=== PATIENT | male | born 1930 | race Caucasian/White ===

== ENCOUNTER 2018-03-31 07:31 | Day surgery (SDC) | payer OTHER ==
[2018-03-19 13:09] VITALS: BMI 27.4
[2018-03-31] MEDS ORDERED: Iohexol 240 200 ML ONE (11:43)
[2018-03-31] MEDS: cefTRIAXone 1 gm 1 GM/100 ML BAG IVPB ONE ×2 (12:10→12:18)
[2018-03-31] MEDS ORDERED: Propofol 10 mg/ml Inj (20 ML) ONE (12:13)
[2018-03-31] MEDS ORDERED: Lactated Ringer's 1,000 ML IV SCH (12:45)
--- NOTE | 2018-03-31 12:50 | PCM.SURG1 ---
Surgeon's Initial Post Op Note - Surgeon's Notes Surgeon: Raymond Angel Photographic Process Worker: none Type of Anesthesia: General Mask Pre-Operative Diagnosis: Urinary retention Operative Findings: BPH. Bladder calculi. L vu-reflux, grade 1 Post-Operative Diagnosis: same Operation Performed: cysto, cmg, cgm, removal of bladder calculi Specimen/Specimens Removed: bladder stone Estimated Blood Loss: EBL {In ML}: 0 Blood Products Given: N/A Post-Op Condition: Good Date of Surgery/Procedure: 03/31/18 Time of Surgery/Procedure: 12:50
[2018-03-31 14:01] VITALS: RESP 15; TEMP 97.6
[2018-03-31 14:24] VITALS: BP 149/55; PULSE 59; O2SAT 99
--- NOTE | 2018-04-01 17:01 | RAD ---
Date of service: 03/31/2018 PROCEDURE: HISTORY: URINARY RETENTION COMPARISON: None TECHNIQUE: Seven images FINDINGS: Image labeled metal reclamation kettle tender shows nonspecific bowel gas pattern. And pelvic vascular calcifications. Moderate stool retention present and lumbar spondylosis. Series 2, image 9 shows a moderately distended bladder with some trabecular markings to its contour no gross filling defects seen. No gross reflux appreciated. Postvoid film shows no residual contrast within the bladder or contrast refluxing up into the cephalad collecting systems. IMPRESSION: No filling defects. No reflux appreciated No postvoid residual urine volume.
--- NOTE | 2018-04-01 19:02 | OP ---
Copied To: Mara Angel MD Attending MD: Mara Angel MD PROCEDURE DATE: 03/31/2018 PREOPERATIVE DIAGNOSIS: Urinary retention. POSTOPERATIVE DIAGNOSES: Urinary retention. Prostatic enlargement. Cystitis. Left vesicoureteral reflux. PROCEDURES: Cystogram. Cystometrogram. Cystoscopy. OPERATING SURGEON: Mara Angel MD DESCRIPTION OF PROCEDURE: As follows: The patient was in supine position. Papier Mache' Molder film of the abdomen was obtained. Iodinated contrast dye was instilled via the Burns catheter. Radiographs were obtained in PA and oblique views. Cystogram demonstrated a normal bladder contour. There was elevation of the bladder base consistent with prostatic hypertrophy. There was grade 1 left vesicoureteral reflux. There was no filling defects within the bladder. There was elevation of the bladder base consistent with prostatic hypertrophy. There was no bladder diverticulum. Subsequent post drainage film confirmed the above findings. The cystometrogram was performed using water manometry. The filling of the bladder was performed. The patient felt first urge to void at a volume of the 100 mL. There was no brisk detrusor contraction noted on the water manometry. The patient continued to feel the urge to void. The bladder was filled up to a volume of 350 mL. The patient was then placed in lithotomy position. Genitalia prepped and draped sterilely. The patient had received perioperative antibiotics. The genitalia prepped and draped sterilely. A 22-Martiniquais cystoscope sheath was introduced under direct vision. Urethra, prostate and bladder were inspected with 30-degree and 70 degree lenses. FINDINGS: There was no stricture in the anterior urethra. There was evidence of trilobar prostatic hypertrophy. Prostatic urethra was 4 cm in length. There was lateral lobe hypertrophy, which was occlusive. In addition, there was middle lobe hypertrophy, which was occlusive and which was intruding into the bladder. There was moderate bladder trabeculation. There was a small cellule. There was no bladder stone. There was no bladder tumor. The ureteral orifices were normal in position and shape. There was moderate cystitis noted. The bladder was inspected with 70- degree lens and confirmed the above findings. Bladder was then drained. Cystoscope and sheath removed. Burns catheter was inserted. Bladder drainage was clear. Exam under anesthesia/bimanual examination was performed. There was no abnormal pelvic mass, fixation, or induration. Prostate was supple and smooth without fixation, induration, or nodularity. Prostate was approximately 30-40 g in size. The patient tolerated the procedure without complications. Mara Angel MD
== END 2018-03-31 14:39 | disposition home or self-care (01) ==
LOC: C.SDS 07:31
PROVIDERS: ATTEND Urology
DX: N40.1 Benign prostatic hyperplasia with lower urinary tract symptoms (principal); R33.9 Retention of urine, unspecified; N13.70 Vesicoureteral-reflux, unspecified; N30.90 Cystitis, unspecified without hematuria
CPT/HCPCS: 51728; 51797; 74430; 82948; 88300; J0696

== ENCOUNTER 2018-04-18 07:44 | Emergency (ER) | payer OTHER ==
[2018-04-18 07:44] VITALS: BMI 27.4
[2018-04-18 07:54] VITALS: PULSE 63
--- NOTE | 2018-04-18 08:09 | C.PDOC ---
History Of Present Illness 87 y/o male, with PMHx of HTN, and diabetes, is brought to ED via BLS for evaluation of inability to urinate and abdominal pain for the past 2 days. As per pt, hays catheter was removed [address] Raymond Angel. Pt reports having back surgery at the beginning of the month with improved mobility. No back pain, saddle anesthesia, enuresis or encoparesis. Otherwise, denies n/v/d, constipation, flank pain, or fever. Time Seen by Provider: 04/18/18 08:05 Chief Complaint (Nursing): Male Genitourinary History Per: Patient History/Exam Limitations: no limitations Past Medical History Reviewed: Historical Data, Nursing Documentation, Vital Signs Vital Signs: Last Vital Signs Temp 98 F 04/18/18 09:09 Pulse 63 04/18/18 09:09 Resp 18 04/18/18 09:09 BP 150/63 04/18/18 09:09 Pulse Ox 96 04/18/18 09:30 - Medical History PMH: Arthritis, Benign Prostatic Hyperplasia, CAD (angioplasty), Diabetes, HTN Denies: Chronic Kidney Disease Surgical History: Back Surgery - [facility] Procedures FUSION 2-4 L JT W NONAUT SUB, POST APPR P COL, OPEN (01/28/18) OTHER SKIN & SUBQ I D (04/13/15) Family History: States: Unknown Family Hx - Social History Hx Alcohol Use: No Hx Substance Use: No - Immunization History Hx Tetanus Toxoid Vaccination: Yes Hx Influenza Vaccination: Yes Hx Pneumococcal Vaccination: Yes Review Of Systems Except As Marked, All Systems Reviewed And Found Negative. Constitutional: Negative for: Fever, Chills Cardiovascular: Negative for: Chest Pain, Palpitations Respiratory: Negative for: Cough, Shortness of Breath Gastrointestinal: Negative for: Nausea, Vomiting, Abdominal Pain, Diarrhea, Constipation Genitourinary: Positive for: Other (inability to urinate) Musculoskeletal: Negative for: Back Pain Physical Exam - Physical Exam Appears: Non-toxic, No Acute Distress Skin: Normal Color, Warm, Dry Head: Atraumatic, Normacephalic Eye(s): bilateral: Normal Inspection Oral Mucosa: Moist Neck: Normal ROM, Supple Chest: Symmetrical Cardiovascular: Rhythm Regular, No Murmur Respiratory: Normal Breath Sounds, No Rales, No Rhonchi, No Wheezing Gastrointestinal/Abdominal: Soft, No Tenderness, No Mass, No Distention, No Guarding, No Rebound Back: No CVA Tenderness, No Vertebral Tenderness, No Paraspinal Tenderness, Other (15cm surgical scar to lumbar spine, well healing, no erythema or crepitus.) Extremity: Normal ROM, No Deformity Neurological/Psych: Oriented x3, Normal Speech, Other (no saddle anesthesia. pt has steady gait) ED Course And Treatment O2 Sat by Pulse Oximetry: 96 (RA) Pulse Ox Interpretation: Normal Medical Decision Making Medical Decision Makin yr old male w/ hx of Back surgery p/w urinary retention x2d after hays removal. Was seen by Dr. Angel 2d prior and had hays removed. Pt notes suprapubic abdominal pain, throbbing, exactly alike previous retention. No flank pain- u/l dissection, No throbbing abd mass on my exam. No rectal pain or deep fullness- u/l prostatitis. No RLQ or LLQ pain, and no diarrhea- u/l diverticulitis or appdx. Plan: Urinalysis Urine culture 814: appreciate consult w/ Dr. Raymond Angel: hays to be placed and to follow up outpt 829: hays placed by RN, w/ clear anh drainage, pt notes immediate relief of pressure suprapubically Pending UA 0930 UA Resulted: UTI; 03/19 UA sensitive to cipro Will rx w/ cipro for UTI. UC ordered. Pending Hays to leg bag, continues draining anh urine w/ out clots to followup w/ Dr. Angel Disposition - Disposition Disposition Time: 09:28 Condition: GOOD Forms: [facility] ([place]ian) - Clinical Impression Clinical Impression: UTI (urinary tract infection), Urinary retention - Scribe Statement The provider has reviewed the documentation as recorded by the Scribe KP All medical record entries made by the Scribe were at my direction and personally dictated by me. I have reviewed the chart and agree that the record accurately reflects my personal performance of the history, physical exam, medical decision making, and the department course for this patient. I have also personally directed, reviewed, and agree with the discharge instructions and disposition.
[2018-04-18 09:07] LABS: URINE BACTERIA OCC (<OCC); URINE BILIRUBIN NEGATIVE (NEGATIVE); URINE BLOOD 3+ (NEGATIVE); URINE CLARITY Turbid (Clear); URINE COLOR Yellow (YELLOW); URINE GLUCOSE (UA) 1+ mg/dL (Normal); URINE LEUKOCYTE ESTERASE 3+ Leu/uL (Negative); URINE PROTEIN 2+ mg/dL (NEGATIVE); URINE UROBILINOGEN NORMAL mg/dL (0.2-1.0); WBC CLUMPS OCC /hpf
[2018-04-18 09:09] VITALS: BP 150/63; RESP 18; TEMP 98
[2018-04-18 09:29] VITALS: O2SAT 96
== END 2018-04-18 10:27 | disposition home or self-care (01) ==
LOC: C.ER 07:44
DX: R33.9 Retention of urine, unspecified (principal); N39.0 Urinary tract infection, site not specified

== ENCOUNTER 2018-05-09 09:23 | Inpatient (IN) | payer OTHER ==
[2018-05-05 10:33] VITALS: BMI 25.8
[2018-05-09] MEDS ORDERED: cefTRIAXone 1 gm 1 GM/100 ML BAG IVPB ONE (11:00)
[2018-05-09] MEDS ORDERED: Lidocaine 2% Jelly (Uro-Jet) ONE (11:00)
[2018-05-09] MEDS ORDERED: Propofol 10 mg/ml Inj (20 ML) ONE (11:04)
[2018-05-09] MEDS ORDERED: ePHEDrine 50 mg/ml Inj ONE (11:21)
[2018-05-09] MEDS ORDERED: HYDROmorphone 0.5 mg/0.5 ml ISec IVP PRN (12:13)
--- NOTE | 2018-05-09 13:38 | PCM.SURG1 ---
Surgeon's Initial Post Op Note - Surgeon's Notes Surgeon: Raymond Angel Agricultural Service Worker: none Type of Anesthesia: General LMA Pre-Operative Diagnosis: BPH, retention Operative Findings: same Post-Operative Diagnosis: same Operation Performed: TURP Specimen/Specimens Removed: prostate Estimated Blood Loss: EBL {In ML}: 100 Blood Products Given: N/A Post-Op Condition: Good Date of Surgery/Procedure: 05/09/18 Time of Surgery/Procedure: 12:40
--- NOTE | 2018-05-09 13:46 | CP.PCM.HP ---
<Sam Shane - Last Filed: 05/09/18 14:34> History of Present Illness - History of Present Illness History of Present Illness: H&P For Medicine Service This is an 88 yr old male patient of Dr. Angel'colleen who presented to [facility] for TURP. He underwent TURP this morning, completed by Dr. Angel and is being admitted for observation s/p surgery with bladder irrigation. The surgery was completed to address BPH and urinary retention. Pathology samples have been submitted. The patient was seen and examined in the PACU. He remains groggy from surgical sedation. He denies any acute complaints, states that his pain is well controlled. PMD: Dr. Braga PMHx: HTN, DMII, CAD s/p angioplasty >15 yrs ago, chronic low back pain, BPH SurgHx: angioplasty 15 yrs ago, TURP (current admission), "Back surgery" (unsure of surgical intervention) Medications: Flexeril 5mg PO QHS PRN, Lexapro 5mg PO QD, Proscar 5mg PO QD, gabapentin 100mg PO QD, Glipizide SR 5mg PO QD, Duexis 800-26.6mg PO BID, Levemir 5u SC QHS, Losartan 50mg PO QD, Metformin 500mg PO QD, Metorprolol Succ 50mg PO QD, Januvia 100mg PO QD, Allergies: NKDA FMHx: sister with CAD s/p CABG SocHx: denies tobacco, EtOH and drugs Present on Admission - Present on Admission Any Indicators Present on Admission: No Review of Systems - Constitutional Constitutional: absent: Chills, Fever - EENT Eyes: absent: Blurred Vision, Change in Vision - Cardiovascular Cardiovascular: absent: Chest Pain, Dyspnea - Respiratory Respiratory: absent: Cough, Dyspnea - Gastrointestinal Gastrointestinal: absent: Abdominal Pain, Constipation, Diarrhea, Nausea, Vomiting - Genitourinary Genitourinary: As Per HPI - Neurological Neurological: absent: Dizziness, Numbness, Syncope, Tingling, Vertigo Past Patient History - Infectious Disease Hx of Infectious Diseases: None - Past Medical History & Family History Past Medical History?: Yes - Past Social History Smoking Status: Never Smoked - CARDIAC Hx Cardiac Disorders: Yes Hx Hypertension: Yes - PULMONARY Hx Respiratory Disorders: No - NEUROLOGICAL Hx Neurological Disorder: No - HEENT Hx HEENT Problems: No - RENAL Hx Chronic Kidney Disease: No - ENDOCRINE/METABOLIC Hx Endocrine Disorders: Yes Hx Diabetes Mellitus Type 2: Yes - HEMATOLOGICAL/ONCOLOGICAL Hx Blood Disorders: No - INTEGUMENTARY Hx Dermatological Problems: No - MUSCULOSKELETAL/RHEUMATOLOGICAL Hx Musculoskeletal Disorders: Yes Hx Arthritis: Yes Hx Back Pain: Yes Hx Falls: Yes Other/Comment: HX: LUMBAR SPONDYLOSIS AND INSTABILITY - GASTROINTESTINAL Hx Gastrointestinal Disorders: No - GENITOURINARY/GYNECOLOGICAL Hx Genitourinary Disorders: Yes Hx Prostate Problems: Yes Other/Comment: URINARY RETENTION S/P SURGERY W/ MEYERS CATHETER X 1 MONTH - PSYCHIATRIC Hx Psychophysiologic Disorder: No Hx Substance Use: No - SURGICAL HISTORY Hx Surgeries: Yes Hx Angioplasty: Yes (2002) Hx Orthopedic Surgery: Yes (LUMBAR LAMINECTOMY L3-4/L4-5) Other/Comment: CYSTOSCOPY - ANESTHESIA Hx Anesthesia: Yes Hx Anesthesia Reactions: No Hx Malignant Hyperthermia: No Has any member of the family had a problem w/ anesthesia?: ([place]) Meds Allergies/Adverse Reactions: Allergies Allergy/AdvReac Type Severity Reaction Status Date / Time No Known Allergies Allergy Verified 04/18/18 07:52 Physical Exam - Head Exam Head Exam: ATRAUMATIC, NORMOCEPHALIC - Eye Exam Eye Exam: Normal appearance - ENT Exam ENT Exam: Mucous Membranes Dry - Respiratory Exam Respiratory Exam: Clear to Auscultation Bilateral, NORMAL BREATHING PATTERN - Cardiovascular Exam Cardiovascular Exam: REGULAR RHYTHM, +S1, +S2 - GI/Abdominal Exam GI & Abdominal Exam: Soft. absent: Guarding, Tenderness - Extremities Exam Extremities exam: Negative for: calf tenderness, pedal edema - Neurological Exam Neurological exam: Alert, Oriented x3 - Psychiatric Exam Psychiatric exam: Normal Affect, Normal Mood - Skin Skin Exam: Dry, Warm Results - Vital Signs Recent Vital Signs: Last Vital Signs Temp 97.6 F 05/09/18 12:12 Pulse 74 05/09/18 13:15 Resp 11 L 05/09/18 13:15 BP 165/89 H 05/09/18 13:15 Pulse Ox 99 05/09/18 13:15 - Labs Labs: Laboratory Results - last 24 hr 05/09/18 10:08 POC Glucose (mg/dL) 146 H Assessment & Plan - Assessment and Plan (Free Text) Plan: BPH s/p TURP TURP completed 05/09/18- Dr. Angel Bladder irrigation Follow up urology recs Admission to Med/Surg for observation Follow up labs Continue home meds: Flomax 0.4mg PO BID, Proscar 5mg PO BID Diabetes Mellitus Follow up A1C, lipid panel Fingersticks ACHS Low dose ISS Diabetic Diet Hypoglycemia Protocol CAD s/p angioplasty Continue with home meds: Losartan 50mg PO QD, Metoprolol Succ 50mg PO QD Follow up chest xray heart healthy diet Anxiety/Depression Continue home meds: Lexapro 5mg PO daily Chronic Lower Back Pain Flexeril 5mg PO QHS PRN Tylenol 650mg PO Q6HRS PRN Gabapentin 100mg PO QD Additional pain control PRN PPX SCD's A/C contraindicated in setting of recent surgery Pepcid 20mg PO BID Case discussed with Dr. Ayala <Gopi Ayala - Last Filed: 05/09/18 16:18> Results - Vital Signs Recent Vital Signs: Last Vital Signs Temp 97.4 F L 05/09/18 14:30 Pulse 74 05/09/18 14:30 Resp 10 L 05/09/18 14:30 BP 161/79 H 05/09/18 14:30 Pulse Ox 99 05/09/18 14:30 - Labs Labs: Laboratory Results - last 24 hr 05/09/18 10:08 POC Glucose (mg/dL) 146 H Attending/Attestation - Attestation I have personally seen and examined this patient.: Yes I have fully participated in the care of the patient.: Yes I have reviewed all pertinent clinical information: Yes Notes (Text): 05/09/18 16:14 Medical attending: Patient was seen and examined by me. Agree with the above note by the resident The patient was in the PACU when I came and saw him. He was not in any acute distress. He is admitted for observation s/p TURP surgery with bladder irrigation. He was sleepy however able to answer all questions appripirately Given his age as well history of CAD, we will get a CXRAY just to see if he could potentially be fluid overload. Also resume most of the medications as well. Hold off on giving heparin/lovenox for the time being. thank you Gopi Ayala
[2018-05-09] MEDS ORDERED: Glucagon Recombinant 1 mg Inj IM PRN (14:41)
[2018-05-09] MEDS ORDERED: Dextrose 50% SYRINGE Inj (50 ml) IV PRN (14:41)
[2018-05-09] MEDS: (Novolog) Insulin Aspart, Recombinant 100 u/ml 10 ml vial SC SCH ×2 (17:10→22:03)
--- NOTE | 2018-05-09 17:46 | RAD ---
Date of service: 05/09/2018 PROCEDURE: CHEST RADIOGRAPH, 1 VIEW HISTORY: hx of heart disease COMPARISON: Comparison made with CT chest [id number]. FINDINGS: LUNGS: Poor inspiration with low lung volumes, crowded bronchovascular markings and mild bibasilar atelectasis. There is a curvilinear density left mid lung field that could represent atelectasis and/or scar. PLEURA: No pneumothorax or pleural fluid seen. CARDIOVASCULAR: Heart size upper limits of normal. OSSEOUS STRUCTURES: No significant abnormalities. VISUALIZED UPPER ABDOMEN: Normal. OTHER FINDINGS: None. IMPRESSION: Poor inspiration with low lung volumes, crowded bronchovascular markings and mild bibasilar atelectasis. There is a curvilinear density left mid lung field that could represent atelectasis and/or scar.
[2018-05-09 17:55] LABS: BASO % 0.5 % (0.0-2.0); EOS # 0.3 K/uL (0.0-0.7); EOS % 3.6 % (0.0-4.0); HEMOGLOBIN 13.6 g/dL (12.0-18.0); LYMPH # 2.4 K/uL (1.0-4.3); LYMPH % 30.9 % (20.0-40.0); MEAN CELL VOLUME 94.1 fL (80.0-94.0); MEAN CORPUSCULAR HEMOGLOBIN 31.4 pg (27.0-31.0); MEAN CORPUSCULAR HGB CONC 33.4 g/dL (33.0-37.0); MEAN PLATELET VOLUME 7.9 fL (7.2-11.7); MONO # 0.8 K/uL (0.0-0.8); MONO % 10.2 % (0.0-10.0); NEUT # 4.3 K/uL (1.8-7.0); NEUT % 54.8 % (50.0-75.0); NRBC % 0.1 % (0.0-2.0); RBC 4.33 Mil/uL (4.40-5.90); RED CELL DISTRIBUTION WIDTH 13.5 % (11.5-14.5); WHITE BLOOD COUNT 7.9 K/uL (4.8-10.8)
[2018-05-09 18:12] LABS: ALB/GLOB RATIO 1.4 (1.0-2.1); ALBUMIN 4.3 g/dL (3.5-5.0); ALT/SGPT 35 U/L (21-72); AST/SGOT 25 U/L (17-59); BLOOD UREA NITROGEN 21 mg/dL (9-20); CALCIUM 9.6 mg/dl (8.6-10.4); GFR NON-AFRICAN AMERICAN > 60
[2018-05-10 06:59] LABS: HEMOGLOBIN 13.2 g/dL (12.0-18.0); MEAN CELL VOLUME 92.6 fL (80.0-94.0); MEAN CORPUSCULAR HEMOGLOBIN 31.6 pg (27.0-31.0); MEAN CORPUSCULAR HGB CONC 34.1 g/dL (33.0-37.0); MEAN PLATELET VOLUME 8.1 fL (7.2-11.7); RBC 4.17 Mil/uL (4.40-5.90); RED CELL DISTRIBUTION WIDTH 13.4 % (11.5-14.5); WHITE BLOOD COUNT 7.6 K/uL (4.8-10.8)
[2018-05-10 07:26] LABS: ALB/GLOB RATIO 1.2 (1.0-2.1); ALBUMIN 3.9 g/dL (3.5-5.0); ALT/SGPT 28 U/L (21-72); AST/SGOT 24 U/L (17-59); BLOOD UREA NITROGEN 17 mg/dL (9-20); CALCIUM 9.7 mg/dl (8.6-10.4); GFR NON-AFRICAN AMERICAN > 60; HDL CHOLESTEROL 42 mg/dL (30-70)
[2018-05-10 07:38] LABS: LDL CHOLESTEROL 61 mg/dL (0-129)
[2018-05-10] MEDS: (Novolog) Insulin Aspart, Recombinant 100 u/ml 10 ml vial SC SCH ×4 (08:35→22:43)
[2018-05-10] MEDS: Metoprolol Succinate 50 mg XL Tab PO SCH (10:11)
--- NOTE | 2018-05-10 12:46 | CP.PCM.PN ---
<Greg Agrawal - Last Filed: 05/10/18 21:10> Subjective - Date & Time of Evaluation Date of Evaluation: 05/10/18 Time of Evaluation: 08:30 - Subjective Subjective: Patient is seen and examined at bedside. Patient feeling much better today. Patient has some discomfort on tip of penis where the hays catheter is inserted. Patient denies burning, or redness in the tip of penis. Patient denies fevers, chills, chest pain, shortness of breath, nausea or vomiting. CBI was discontinued recently as per Dr Jeanne chacko. urine output from hays is 550 overnight. Objective - Vital Signs/Intake and Output Vital Signs (last 24 hours): Temp Pulse Resp BP Pulse Ox 98.3 F 64 20 146/77 60 L 05/10/18 08:00 05/10/18 08:00 05/10/18 08:00 05/10/18 08:00 05/10/18 08:00 Intake and Output: 05/10/18 05/10/18 06:59 18:59 Intake Total 21420 240 Output Total 04507 550 Balance 150 -310 - Medications Medications: Current Medications Acetaminophen (Tylenol 325mg Tab) 650 mg PO Q6 PRN PRN Reason: Pain, Mild (1-3) Acetaminophen (Tylenol 325mg Tab) 650 mg PO Q6 PRN PRN Reason: Fever >100.4 F Cyclobenzaprine HCl (Flexeril) 5 mg PO HS PRN PRN Reason: Muscle spasm Dextrose (Dextrose 50% Inj) 0 ml IV STAT PRN; Protocol PRN Reason: Hypoglycemia Protocol Dextrose (Glutose 15) 0 gm PO ONCE PRN; Protocol PRN Reason: Hypoglycemia Protocol Docusate Sodium (Colace) 100 mg PO TID [facility] Last Admin: 05/10/18 10:11 Dose: 100 mg Escitalopram Oxalate (Lexapro) 5 mg PO DAILY [facility] Last Admin: 05/10/18 10:12 Dose: 5 mg Famotidine (Pepcid) 20 mg PO DAILY [facility] Last Admin: 05/10/18 10:11 Dose: 20 mg Finasteride (Proscar) 5 mg PO DAILY [facility] Last Admin: 05/10/18 10:12 Dose: 5 mg Gabapentin (Neurontin) 100 mg PO DAILY [facility] Last Admin: 05/10/18 10:11 Dose: 100 mg Glucagon (Glucagen Diagnostic Kit) 0 mg IM STAT PRN; Protocol PRN Reason: Hypoglycemia Protocol Hydromorphone HCl (Dilaudid) 0.5 mg IVP Q10M PRN PRN Reason: Pain, moderate (4-7) Last Admin: 05/09/18 13:22 Dose: 0.5 mg Dextrose (Dextrose 5% In Water 1000 Ml) 1,000 mls @ 0 mls/hr IV .Q0M PRN; Protocol PRN Reason: Hypoglycemia Protocol Ceftriaxone Sodium 1 gm/ (Sodium Chloride) 100 mls @ 100 mls/hr IVPB DAILY [facility]; Protocol Last Admin: 05/10/18 11:12 Dose: 100 mls/hr Influenza Virus Vaccine (Fluzone Quad [id number]) 60 mcg IM .ONCE ONE Stop: 05/11/18 10:01 Insulin Aspart (Novolog) 0 unit SC ACHS [facility]; Protocol Last Admin: 05/10/18 12:13 Dose: 2 units Losartan Potassium (Cozaar) 50 mg PO DAILY [facility] Last Admin: 05/10/18 10:11 Dose: 50 mg Metoprolol Succinate (Toprol Xl) 50 mg PO DAILY [facility] Last Admin: 05/10/18 10:11 Dose: 50 mg Oxycodone/Acetaminophen (Percocet 5/325 Mg Tab) 1 tab PO Q4H PRN PRN Reason: Pain, moderate (4-7) Stop: 05/12/18 17:00 Pneumococcal Polyvalent Vaccine (Pneumovax 23 Vaccine) 0.5 ml IM .ONCE ONE Stop: 05/11/18 10:01 Tamsulosin HCl (Flomax) 0.4 mg PO Q12 [facility] Last Admin: 05/10/18 10:11 Dose: 0.4 mg - Labs Labs: 05/10/18 06:41 05/10/18 06:41 - Constitutional Appears: Well, Non-toxic, No Acute Distress - Head Exam Head Exam: ATRAUMATIC, NORMAL INSPECTION, NORMOCEPHALIC - Eye Exam Eye Exam: EOMI, Normal appearance - ENT Exam ENT Exam: Mucous Membranes Moist, Normal Exam - Neck Exam Neck Exam: Full ROM - Respiratory Exam Respiratory Exam: Clear to Ausculation Bilateral, NORMAL BREATHING PATTERN. absent: Rales, Rhonchi, Wheezes - Cardiovascular Exam Cardiovascular Exam: REGULAR RHYTHM, +S1, +S2 - GI/Abdominal Exam GI & Abdominal Exam: Soft, Normal Bowel Sounds. absent: Distended, Tenderness - Exam Additional comments: Hays catheter in place, functioning - Extremities Exam Extremities Exam: Full ROM, Normal Inspection - Back Exam Back Exam: Full ROM, NORMAL INSPECTION - Neurological Exam Neurological Exam: Alert, Awake, Normal Gait, Oriented x3 - Psychiatric Exam Psychiatric exam: Normal Affect, Normal Mood - Skin Skin Exam: Dry, Intact, Normal Color, Warm Assessment and Plan - Assessment and Plan (Free Text) Plan: BPH s/p TURP TURP completed 05/09/18- Dr. Angel CBI discontinued - continue irrigate hays Follow up urology recs Follow up labs Continue home meds: Flomax 0.4mg PO BID, Proscar 5mg PO BID Diabetes Mellitus Follow up A1C, lipid panel (triglycerides 287) Fingersticks ACHS Low dose ISS Diabetic Diet Hypoglycemia Protocol CAD s/p angioplasty Continue with home meds: Losartan 50mg PO QD, Metoprolol Succ 50mg PO QD Follow up chest xray - crowded bronchovascular markings and mild bibasilar atelectasis. curvilinear density left mid lung that could represent atelectasis and/or scar. heart healthy diet Anxiety/Depression Continue home meds: Lexapro 5mg PO daily Chronic Lower Back Pain Flexeril 5mg PO QHS PRN Tylenol 650mg PO Q6HRS PRN Gabapentin 100mg PO QD Additional pain control PRN PPX SCD's A/C contraindicated in setting of recent surgery Pepcid 20mg PO BID discussed with Dr Lucy Agrawal, PGY-1 <Gopi Ayala H - Last Filed: 05/11/18 07:55> Objective - Vital Signs/Intake and Output Vital Signs (last 24 hours): Temp Pulse Resp BP Pulse Ox 98.2 F 57 L 20 133/61 95 05/11/18 00:00 05/11/18 00:00 05/11/18 00:00 05/11/18 00:00 05/11/18 00:00 Intake and Output: 05/11/18 05/11/18 06:59 18:59 Intake Total 700 Output Total 900 Balance -200 - Medications Medications: Current Medications Acetaminophen (Tylenol 325mg Tab) 650 mg PO Q6 PRN PRN Reason: Pain, Mild (1-3) Acetaminophen (Tylenol 325mg Tab) 650 mg PO Q6 PRN PRN Reason: Fever >100.4 F Cyclobenzaprine HCl (Flexeril) 5 mg PO HS PRN PRN Reason: Muscle spasm Dextrose (Dextrose 50% Inj) 0 ml IV STAT PRN; Protocol PRN Reason: Hypoglycemia Protocol Dextrose (Glutose 15) 0 gm PO ONCE PRN; Protocol PRN Reason: Hypoglycemia Protocol Docusate Sodium (Colace) 100 mg PO TID [facility] Last Admin: 05/10/18 17:41 Dose: Not Given Escitalopram Oxalate (Lexapro) 5 mg PO DAILY [facility] Last Admin: 05/10/18 10:12 Dose: 5 mg Famotidine (Pepcid) 20 mg PO DAILY [facility] Last Admin: 05/10/18 10:11 Dose: 20 mg Finasteride (Proscar) 5 mg PO DAILY [facility] Last Admin: 05/10/18 10:12 Dose: 5 mg Gabapentin (Neurontin) 100 mg PO DAILY [facility] Last Admin: 05/10/18 10:11 Dose: 100 mg Glucagon (Glucagen Diagnostic Kit) 0 mg IM STAT PRN; Protocol PRN Reason: Hypoglycemia Protocol Hydromorphone HCl (Dilaudid) 0.5 mg IVP Q10M PRN PRN Reason: Pain, moderate (4-7) Last Admin: 05/09/18 13:22 Dose: 0.5 mg Dextrose (Dextrose 5% In Water 1000 Ml) 1,000 mls @ 0 mls/hr IV .Q0M PRN; Protocol PRN Reason: Hypoglycemia Protocol Ceftriaxone Sodium 1 gm/ (Sodium Chloride) 100 mls @ 100 mls/hr IVPB DAILY [facility]; Protocol Last Admin: 05/10/18 11:12 Dose: 100 mls/hr Influenza Virus Vaccine (Fluzone Quad [id number]) 60 mcg IM .ONCE ONE Stop: 05/11/18 10:01 Insulin Aspart (Novolog) 0 unit SC ACHS [facility]; Protocol Last Admin: 05/10/18 22:43 Dose: Not Given Losartan Potassium (Cozaar) 50 mg PO DAILY [facility] Last Admin: 05/10/18 10:11 Dose: 50 mg Metoprolol Succinate (Toprol Xl) 50 mg PO DAILY [facility] Last Admin: 05/10/18 10:11 Dose: 50 mg Oxycodone/Acetaminophen (Percocet 5/325 Mg Tab) 1 tab PO Q4H PRN PRN Reason: Pain, moderate (4-7) Stop: 05/12/18 17:00 Last Admin: 05/11/18 06:33 Dose: 1 tab Pneumococcal Polyvalent Vaccine (Pneumovax 23 Vaccine) 0.5 ml IM .ONCE ONE Stop: 05/11/18 10:01 Tamsulosin HCl (Flomax) 0.4 mg PO Q12 [facility] Last Admin: 05/10/18 22:27 Dose: 0.4 mg - Labs Labs: 05/10/18 06:41 05/10/18 06:41 Attending/Attestation - Attestation I have personally seen and examined this patient.: Yes I have fully participated in the care of the patient.: Yes I have reviewed all pertinent clinical information, including history, physical exam and plan: Yes Notes (Text): Medical attending: Patient was seen and examined by me. Reviewed the above note by the resident The patient was not in any acute distress when we came and saw him. He tolerating diet ok and also the patient was breathing ok as well, the CXRAY reviewed some mild congestion so will avoid extra IVF at this time since he is doing ok with PO intake. The urine in the hays bag was a slight pink when we examined him Gopi Ayala
[2018-05-11] MEDS: Oxycodone/Acetaminophen 5/325 mg Tab PO PRN ×2 (01:05→06:33)
[2018-05-11] MEDS: (Novolog) Insulin Aspart, Recombinant 100 u/ml 10 ml vial SC SCH ×4 (08:25→21:37)
[2018-05-11] MEDS: Metoprolol Succinate 50 mg XL Tab PO SCH (10:00)
[2018-05-11] MEDS ORDERED: Influenza Vaccine 60 MCG/0.5 ML SYR (3 yr & up) IM ONE (10:00)
[2018-05-11] MEDS ORDERED: Pneumococcal 23-Valent Vaccine IM ONE (10:00)
--- NOTE | 2018-05-11 11:54 | CP.PCM.PN ---
<Elana Renteria P - Last Filed: 05/11/18 11:50> Subjective - Date & Time of Evaluation Date of Evaluation: 05/11/18 Time of Evaluation: 05:00 - Subjective Subjective: PGY-1 progress note for hospitalist service. Patient was seen and evaluated at bedside. Stats he feels much better. Denies fever, chills, nausea, vomiting, abdominal pain, chest pain and shortness of breath. Objective - Vital Signs/Intake and Output Vital Signs (last 24 hours): Temp Pulse Resp BP Pulse Ox 97.8 F 20 L 95 H 139/69 95 05/11/18 08:00 05/11/18 08:00 05/11/18 08:00 05/11/18 08:00 05/11/18 08:00 Intake and Output: 05/11/18 05/11/18 06:59 18:59 Intake Total 700 Output Total 900 Balance -200 - Medications Medications: Current Medications Acetaminophen (Tylenol 325mg Tab) 650 mg PO Q6 PRN PRN Reason: Pain, Mild (1-3) Acetaminophen (Tylenol 325mg Tab) 650 mg PO Q6 PRN PRN Reason: Fever >100.4 F Cyclobenzaprine HCl (Flexeril) 5 mg PO HS PRN PRN Reason: Muscle spasm Dextrose (Dextrose 50% Inj) 0 ml IV STAT PRN; Protocol PRN Reason: Hypoglycemia Protocol Dextrose (Glutose 15) 0 gm PO ONCE PRN; Protocol PRN Reason: Hypoglycemia Protocol Docusate Sodium (Colace) 100 mg PO TID [facility] Last Admin: 05/11/18 10:02 Dose: Not Given Escitalopram Oxalate (Lexapro) 5 mg PO DAILY [facility] Last Admin: 05/11/18 10:00 Dose: 5 mg Famotidine (Pepcid) 20 mg PO DAILY [facility] Last Admin: 05/11/18 10:00 Dose: 20 mg Finasteride (Proscar) 5 mg PO DAILY [facility] Last Admin: 05/11/18 10:00 Dose: 5 mg Gabapentin (Neurontin) 100 mg PO DAILY [facility] Last Admin: 05/11/18 10:00 Dose: 100 mg Glucagon (Glucagen Diagnostic Kit) 0 mg IM STAT PRN; Protocol PRN Reason: Hypoglycemia Protocol Hydromorphone HCl (Dilaudid) 0.5 mg IVP Q10M PRN PRN Reason: Pain, moderate (4-7) Last Admin: 05/09/18 13:22 Dose: 0.5 mg Dextrose (Dextrose 5% In Water 1000 Ml) 1,000 mls @ 0 mls/hr IV .Q0M PRN; Protocol PRN Reason: Hypoglycemia Protocol Insulin Aspart (Novolog) 0 unit SC ACHS [facility]; Protocol Last Admin: 05/11/18 08:25 Dose: 3 units Losartan Potassium (Cozaar) 50 mg PO DAILY [facility] Last Admin: 05/11/18 10:00 Dose: 50 mg Metoprolol Succinate (Toprol Xl) 50 mg PO DAILY [facility] Last Admin: 05/11/18 10:00 Dose: 50 mg Oxycodone/Acetaminophen (Percocet 5/325 Mg Tab) 1 tab PO Q4H PRN PRN Reason: Pain, moderate (4-7) Stop: 05/12/18 17:00 Last Admin: 05/11/18 06:33 Dose: 1 tab Tamsulosin HCl (Flomax) 0.4 mg PO Q12 [facility] Last Admin: 05/11/18 10:00 Dose: 0.4 mg - Labs Labs: 05/10/18 06:41 05/10/18 06:41 - Constitutional Appears: Non-toxic, No Acute Distress - Head Exam Head Exam: ATRAUMATIC, NORMOCEPHALIC - Eye Exam Eye Exam: EOMI - ENT Exam ENT Exam: Mucous Membranes Moist - Neck Exam Neck Exam: Full ROM, Normal Inspection - Respiratory Exam Respiratory Exam: Clear to Ausculation Bilateral. absent: Decreased Breath Sounds, Rales, Rhonchi, Wheezes - Cardiovascular Exam Cardiovascular Exam: REGULAR RHYTHM, +S1, +S2 - GI/Abdominal Exam GI & Abdominal Exam: Soft, Normal Bowel Sounds. absent: Tenderness - Exam Additional comments: hays in place, draining clear yellow urine - Extremities Exam Extremities Exam: Full ROM. absent: Calf Tenderness, Pedal Edema, Tenderness - Neurological Exam Neurological Exam: Alert, Awake, Oriented x3 - Psychiatric Exam Psychiatric exam: Normal Affect, Normal Mood - Skin Skin Exam: Normal Color, Warm Assessment and Plan - Assessment and Plan (Free Text) Plan: BPH s/p TURP TURP completed 05/09/18- Dr. Angel continue irrigate hays - 500cc of clear yellow urine in bag, improved from pink colored urine yesterday Follow up urology recs Continue home meds: Flomax 0.4mg PO BID, Proscar 5mg PO BID Diabetes Mellitus lipid panel (triglycerides 287) Fingersticks ACHS Low dose ISS Diabetic Diet Hypoglycemia Protocol CAD s/p angioplasty Continue with home meds: Losartan 50mg PO QD, Metoprolol Succ 50mg PO QD Follow up chest xray - crowded bronchovascular markings and mild bibasilar atelectasis. curvilinear density left mid lung that could represent atelectasis and/or scar. heart healthy diet Anxiety/Depression Continue home meds: Lexapro 5mg PO daily Chronic Lower Back Pain Flexeril 5mg PO QHS PRN Tylenol 650mg PO Q6HRS PRN Gabapentin 100mg PO QD Additional pain control PRN PPX SCD's A/C contraindicated in setting of recent surgery Pepcid 20mg PO BID <Gopi Ayala H - Last Filed: 05/11/18 15:18> Objective - Vital Signs/Intake and Output Vital Signs (last 24 hours): Temp Pulse Resp BP Pulse Ox 97.8 F 20 L 95 H 139/69 95 05/11/18 08:00 05/11/18 08:00 05/11/18 08:00 05/11/18 08:00 05/11/18 08:00 Intake and Output: 05/11/18 05/11/18 06:59 18:59 Intake Total 700 580 Output Total 900 600 Balance -200 -20 - Medications Medications: Current Medications Acetaminophen (Tylenol 325mg Tab) 650 mg PO Q6 PRN PRN Reason: Pain, Mild (1-3) Acetaminophen (Tylenol 325mg Tab) 650 mg PO Q6 PRN PRN Reason: Fever >100.4 F Cyclobenzaprine HCl (Flexeril) 5 mg PO HS PRN PRN Reason: Muscle spasm Dextrose (Dextrose 50% Inj) 0 ml IV STAT PRN; Protocol PRN Reason: Hypoglycemia Protocol Dextrose (Glutose 15) 0 gm PO ONCE PRN; Protocol PRN Reason: Hypoglycemia Protocol Docusate Sodium (Colace) 100 mg PO TID [facility] Last Admin: 05/11/18 13:40 Dose: Not Given Escitalopram Oxalate (Lexapro) 5 mg PO DAILY [facility] Last Admin: 05/11/18 10:00 Dose: 5 mg Famotidine (Pepcid) 20 mg PO DAILY [facility] Last Admin: 05/11/18 10:00 Dose: 20 mg Finasteride (Proscar) 5 mg PO DAILY [facility] Last Admin: 05/11/18 10:00 Dose: 5 mg Gabapentin (Neurontin) 100 mg PO DAILY [facility] Last Admin: 05/11/18 10:00 Dose: 100 mg Glucagon (Glucagen Diagnostic Kit) 0 mg IM STAT PRN; Protocol PRN Reason: Hypoglycemia Protocol Dextrose (Dextrose 5% In Water 1000 Ml) 1,000 mls @ 0 mls/hr IV .Q0M PRN; Protocol PRN Reason: Hypoglycemia Protocol Insulin Aspart (Novolog) 0 unit SC ACHS [facility]; Protocol Last Admin: 05/11/18 12:09 Dose: 2 units Losartan Potassium (Cozaar) 50 mg PO DAILY [facility] Last Admin: 05/11/18 10:00 Dose: 50 mg Metoprolol Succinate (Toprol Xl) 50 mg PO DAILY [facility] Last Admin: 05/11/18 10:00 Dose: 50 mg Oxycodone/Acetaminophen (Percocet 5/325 Mg Tab) 1 tab PO Q4H PRN PRN Reason: Pain, moderate (4-7) Stop: 05/12/18 17:00 Last Admin: 05/11/18 06:33 Dose: 1 tab Tamsulosin HCl (Flomax) 0.4 mg PO Q12 [facility] Last Admin: 05/11/18 10:00 Dose: 0.4 mg - Labs Labs: 05/10/18 06:41 05/10/18 06:41 Attending/Attestation - Attestation I have personally seen and examined this patient.: Yes I have fully participated in the care of the patient.: Yes I have reviewed all pertinent clinical information, including history, physical exam and plan: Yes Notes (Text): 05/11/18 15:10 Medical attending: Patient was seen and examined by me, reviewed the above note by the resident and agree with the above. The patient was not in any acute distress when I came and saw - he wanted to have the hays bag changed over to a leg bag so that he would be able to walk easier. The urine was a light clear pink. It was very uncomfortable and irritating he said. Will try Pyriudium to see if this helps give relief Gopi Ayala
[2018-05-12 08:24] LABS: BASO % 0.6 % (0.0-2.0); EOS # 0.2 K/uL (0.0-0.7); EOS % 2.2 % (0.0-4.0); HEMOGLOBIN 13.4 g/dL (12.0-18.0); LYMPH # 2.1 K/uL (1.0-4.3); LYMPH % 26.3 % (20.0-40.0); MEAN CELL VOLUME 92.3 fL (80.0-94.0); MEAN CORPUSCULAR HEMOGLOBIN 31.7 pg (27.0-31.0); MEAN CORPUSCULAR HGB CONC 34.3 g/dL (33.0-37.0); MEAN PLATELET VOLUME 8.2 fL (7.2-11.7); MONO # 0.9 K/uL (0.0-0.8); NEUT # 4.9 K/uL (1.8-7.0); NEUT % 59.9 % (50.0-75.0); RBC 4.24 Mil/uL (4.40-5.90); RED CELL DISTRIBUTION WIDTH 13.3 % (11.5-14.5); WHITE BLOOD COUNT 8.1 K/uL (4.8-10.8)
[2018-05-12] MEDS: (Novolog) Insulin Aspart, Recombinant 100 u/ml 10 ml vial SC SCH ×2 (08:30→12:30)
[2018-05-12 08:42] VITALS: BP 116/64; PULSE 64; RESP 20; TEMP 98.3; O2SAT 64
[2018-05-12 08:56] LABS: ALB/GLOB RATIO 1.3 (1.0-2.1); ALBUMIN 4.1 g/dL (3.5-5.0); ALT/SGPT 21 U/L (21-72); AST/SGOT 25 U/L (17-59); BLOOD UREA NITROGEN 31 mg/dL (9-20); CALCIUM 9.6 mg/dl (8.6-10.4); GFR NON-AFRICAN AMERICAN 52
[2018-05-12] MEDS: Metoprolol Succinate 50 mg XL Tab PO SCH (10:19)
--- NOTE | 2018-05-12 17:08 | CP.PCM.DIS ---
Provider - Provider Date of Admission: 05/09/18 13:33 Attending physician: Gopi Ayala DO Primary care physician: Dr. Braga Consults: Urology - Dr. Mara Angel Time Spent in preparation of Discharge (in minutes): 45 Diagnosis - Discharge Diagnosis (1) Benign prostate hyperplasia Status: Acute (2) S/P TURP (status post transurethral resection of prostate) Status: Acute (3) Diabetes mellitus Status: Chronic (4) Coronary artery disease Status: Chronic (5) Status post angioplasty Status: Chronic (6) Anxiety Status: Chronic (7) Depression Status: Chronic (8) Chronic low back pain Status: Chronic Hospital Course - Lab Results Lab Results: Micro Results 05/09/18 14:16 Urine,Hays Urine Culture - Final MULTIPLE SPECIES. SUGGEST REPEAT SPECIMEN. Most Recent Lab Values WBC 8.1 K/uL (4.8-10.8) 05/12/18 08:14 RBC 4.24 Mil/uL (4.40-5.90) L 05/12/18 08:14 Hgb 13.4 g/dL (12.0-18.0) 05/12/18 08:14 Hct 39.2 % (35.0-51.0) 05/12/18 08:14 MCV 92.3 fL (80.0-94.0) 05/12/18 08:14 MCH 31.7 pg (27.0-31.0) H 05/12/18 08:14 MCHC 34.3 g/dL (33.0-37.0) 05/12/18 08:14 RDW 13.3 % (11.5-14.5) 05/12/18 08:14 Plt Count 162 K/uL (130-400) 05/12/18 08:14 MPV 8.2 fL (7.2-11.7) 05/12/18 08:14 Neut % (Auto) 59.9 % (50.0-75.0) 05/12/18 08:14 Lymph % (Auto) 26.3 % (20.0-40.0) 05/12/18 08:14 [place] % (Auto) 11.0 % (0.0-10.0) H 05/12/18 08:14 Eos % (Auto) 2.2 % (0.0-4.0) 05/12/18 08:14 Baso % (Auto) 0.6 % (0.0-2.0) 05/12/18 08:14 Neut # (Auto) 4.9 K/uL (1.8-7.0) 05/12/18 08:14 Lymph # (Auto) 2.1 K/uL (1.0-4.3) 05/12/18 08:14 [place] # (Auto) 0.9 K/uL (0.0-0.8) H 05/12/18 08:14 Eos # (Auto) 0.2 K/uL (0.0-0.7) 05/12/18 08:14 Baso # (Auto) 0.0 K/uL (0.0-0.2) 05/12/18 08:14 Sodium 139 mmol/L (132-148) 05/12/18 08:14 Potassium 4.9 mmol/L (3.6-5.2) 05/12/18 08:14 Chloride 99 mmol/L (98-107) 05/12/18 08:14 Carbon Dioxide 27 mmol/L (22-30) 05/12/18 08:14 Anion Gap 18 (10-20) 05/12/18 08:14 BUN 31 mg/dL (9-20) H 05/12/18 08:14 Creatinine 1.3 mg/dL (0.8-1.5) 05/12/18 08:14 Est GFR ( Amer) > 60 05/12/18 08:14 Est GFR (Non-Af Amer) 52 05/12/18 08:14 POC Glucose (mg/dL) 302 mg/dL (65-110) H 05/12/18 11:40 Random Glucose 339 mg/dL (75-110) H 05/12/18 08:14 Hemoglobin A1c 8.0 % (4.2-6.5) H 05/10/18 06:41 Calcium 9.6 mg/dl (8.6-10.4) 05/12/18 08:14 Total Bilirubin 0.7 mg/dL (0.2-1.3) 05/12/18 08:14 AST 25 U/L (17-59) 05/12/18 08:14 ALT 21 U/L (21-72) D 05/12/18 08:14 Alkaline Phosphatase 82 U/L (38-126) 05/12/18 08:14 Total Protein 7.4 g/dL (6.3-8.3) 05/12/18 08:14 Albumin 4.1 g/dL (3.5-5.0) 05/12/18 08:14 Globulin 3.3 gm/dL (2.2-3.9) 05/12/18 08:14 Albumin/Globulin Ratio 1.3 (1.0-2.1) 05/12/18 08:14 Triglycerides 287 mg/dL (0-149) H 05/10/18 06:41 Cholesterol 153 mg/dL (0-199) 05/10/18 06:41 LDL Cholesterol Direct 61 mg/dL (0-129) 05/10/18 06:41 HDL Cholesterol 42 mg/dL (30-70) 05/10/18 06:41 - Hospital Course Hospital Course: Medicine Discharge Summary for Hospitalist Service Luis E Wise DO PGY-1, [place] [employer] 88 yr old male patient of Dr. Angel's, PMHx CAD s/p angioplasty, DM2, anxiety/depression, and chronic lower back pain, who presented to [facility] for TURP on 05/09/18. He underwent TURP on day of admission, completed by Dr. Angel and was admitted for observation s/p surgery with bladder irrigation. The surgery was completed to address BPH and urinary retention. Pathology samples had been submitted. The patient was seen and examined in the PACU. He remained on intial exam groggy from surgical sedation. He denied any acute complaints, stated that his pain was well controlled. Pt had bladder irrigation performed over the weekend. Home meds Flomax 0.4 mg PO bid and Proscar 5 mg PO bid were continued during duration of pt's stay. Pt's DM2 was controlled with insulin sliding scale inpatient, fingersticks trended. Pt's triglycerides on lipid panel inpatient was 287. Pt's hx anxiety/depression was managed on home med Lexapro. Pt's hx of chronic low back pain was managed w/ Flexeril, Tylenol, and Gabapentin Pertinent imaging: CXR 05/09 demonstrated crowded bronchovascular markings and mild bibasilar atelectasis. Curvilinear density L mid lung that could represent atelectasis +/or scar. Pt was discharged to home in stable condition on 05/12/18, and instructed to f/u with Dr. Angel this week in office for removal of hays catheter. As per Dr. Angel, pt was discharged on Keflex, Percocet prn for pain control, and Colace. Pt was instructed to resume home medications as prescribed and to f/u with his PCP Dr. Braga within 1 week of discharge. Discharge Exam - Head Exam Head Exam: ATRAUMATIC, NORMOCEPHALIC - Eye Exam Eye Exam: EOMI, Normal appearance - ENT Exam ENT Exam: Mucous Membranes Moist - Respiratory Exam Respiratory Exam: Clear to PA & Lateral, NORMAL BREATHING PATTERN, UNREMARKABLE - Cardiovascular Exam Cardiovascular Exam: REGULAR RHYTHM, +S1, +S2. absent: Gallop, Rubs, Systolic Murmur - GI/Abdominal Exam GI & Abdominal Exam: Normal Bowel Sounds, Soft, Unremarkable - Exam Additional comments: Hays catheter in place - Extremities Exam Extremities exam: full ROM, normal capillary refill, normal inspection, pedal pulses present - Neurological Exam Neurological exam: Alert, CN II-XII Intact, Normal Gait, Oriented x3, Reflexes Normal - Skin Skin Exam: Dry, Intact, Normal Color, Warm Discharge Plan - Discharge Medications Prescriptions: Docusate Sodium [Colace] 100 mg PO TID #42 capsule Levofloxacin [Levaquin] 500 mg PO DAILY #7 tablet metFORMIN [glucOPHAGE] 500 mg PO BID #28 tab oxyCODONE/Acetaminophen [Percocet 5/325 mg Tab] 1 ea PO Q4H PRN #20 tab PRN Reason: Pain, Severe (8-10) - Follow Up Plan Condition: GOOD Disposition: HOME/ ROUTINE Instructions: Transurethral Resection of the Prostate (DC), Cellulitis (Skin Infection), Adult (DC) Additional Instructions: Please follow-up with Dr. Angel (Urology) for follow-up after discharge and removal of hays catheter this 05/15/18 in office. Please follow-up with your PCP (Dr. Braga) within 1 week of hospital discharge. Please resume home medications as prescribed. Should symptoms recur or worsen, please call your primary care physician or report to your nearest emergency department. Referrals: Sunny Braga MD [Medical Doctor] - Mara Angel MD [Staff Provider] -
--- NOTE | 2018-05-13 19:30 | OP ---
PROCEDURE DATE: 05/09/2018 PREOPERATIVE DIAGNOSES: Urinary retention. Benign prostatic hypertrophy. POSTOPERATIVE DIAGNOSES: Urinary retention. Benign prostatic hypertrophy. PROCEDURE: Cystoscopy, transurethral resection of the prostate. SURGEON: Mara Angel MD. PROCEDURE: The patient received perioperative antibiotics. The patient was placed in lithotomy position. Genitalia prepped and draped sterilely. Anesthesia was applied by the anesthesiologist. A 26-Pasht[place] continuous flow resectoscope sheath was introduced under direct vision using the visual obturator. Urethra, prostate and bladder were inspected. FINDINGS: There was no stricture in the anterior urethra. There was evidence of trilobar prostatic hypertrophy. There was middle lobe hypertrophy. There was lateral lobe hypertrophy. Prostatic urethra was approximately 4 cm in length. There was moderate bladder trabeculation, there was no bladder tumor, there was no bladder stone. The resectoscope was inserted. Resection of the prostate was performed as follows. The middle lobe was first resected. Hemostasis was achieved using electrocautery anticoagulating mode after each section of the resection. Thereafter, the was resected. Subsequently, the lateral lobes on each side were resected. Finally, the floor and apical prostatic tissue were resected, with the surgeon's index finger within the [place] drape within the rectum. The specimen was removed using the [place] scientific evacuator. The bladder was reinspected. There were no residual prostatic chips. The was no bleeding. The resectoscope and sheath removed. Burns catheter was inserted. Bladder drainage was clear with mild traction applied. The patient was returned to the supine position. The patient tolerated the procedure without complication. Mara Angel MD
== END 2018-05-12 16:30 | disposition home or self-care (01) | DRG 714 ==
LOC: C.SDS 09:23 → C.9S 13:33 → C.3T 14:37
PROVIDERS: ADMIT Hospitalist; ATTEND Hospitalist
PROC: 0VT08ZZ Resection of Prostate, Via Natural or Artificial Opening Endoscopic (ICD-10-PCS; principal; 2018-05-09 13:15)
DX: N40.1 Benign prostatic hyperplasia with lower urinary tract symptoms (principal); R33.8 Other retention of urine; E11.9 Type 2 diabetes mellitus without complications; I25.10 Atherosclerotic heart disease of native coronary artery without angina pectoris; I10 Essential (primary) hypertension; M54.5 Low back pain; G89.29 Other chronic pain; Z98.61 Coronary angioplasty status; F32.9 Major depressive disorder, single episode, unspecified; F41.9 Anxiety disorder, unspecified